=== PATIENT | female | born 1985 | race Caucasian/White ===

== ENCOUNTER 2018-09-14 17:09 | Emergency (ER) | payer SELFPAY ==
[~2018-09-14] VITALS: Ht 162.6 cm; Wt 66.0 kg
[2018-09-14 20:23] VITALS: BP 134/76
== END 2018-09-14 21:31 | disposition home or self-care (01) ==
LOC: ER 17:09
DX: O26.899 Other specified pregnancy related conditions, unspecified trimester (principal); R51 Headache; M54.2 Cervicalgia; Z3A.00 Weeks of gestation of pregnancy not specified; Y08.89XA Assault by other specified means, initial encounter; Y93.89 Activity, other specified; Y92.89 Other specified places as the place of occurrence of the external cause; Y99.8 Other external cause status
CPT/HCPCS: 81025; 99283